=== PATIENT | female | born 1940 | race Caucasian/White ===

== ENCOUNTER → 2023-04-18 10:35 | Outpatient (REF) | payer MEDICARE, SELFPAY | LOC: PAVMRI 10:35 | PROVIDERS: ATTENDING PHYSICIAN Nurse Practitioner Family; FAMILY PHYSICIAN Family Medicine | DX: M25.511 Pain in right shoulder (principal) | CPT/HCPCS: 73221 ==

== ENCOUNTER → 2023-07-06 08:07 | Outpatient (REF) | payer MEDICARE, SELFPAY | LOC: RAD 08:07 | PROVIDERS: ATTENDING PHYSICIAN Nurse Practitioner Family | DX: Z13.820 Encounter for screening for osteoporosis (principal); M85.89 Other specified disorders of bone density and structure, multiple sites; Z78.0 Asymptomatic menopausal state | CPT/HCPCS: 77080 ==

== ENCOUNTER → 2023-10-12 14:36 | Outpatient (REF) | payer MEDICARE, SELFPAY | LOC: RAD 14:36 | PROVIDERS: ATTENDING PHYSICIAN Family Medicine | DX: M25.512 Pain in left shoulder (principal) | CPT/HCPCS: 73030 ==

== ENCOUNTER → 2024-09-06 13:17 | Outpatient (REF) | payer MEDICARE, SELFPAY | LOC: RAD 13:17 | PROVIDERS: ATTENDING PHYSICIAN Nurse Practitioner Primary Care; FAMILY PHYSICIAN Family Medicine | DX: M25.561 Pain in right knee (principal); M25.562 Pain in left knee | CPT/HCPCS: 73564 ==

== ENCOUNTER 2024-09-09 18:03 | Emergency (ER) | payer MEDICARE, SELFPAY ==
[2024-09-09 18:05] VITALS: BP 148/87
[2024-09-09 18:37] LABS: Hematocrit 39.3 % (37.0-47.0); Hemoglobin 13.4 g/dL (12.0-16.0); Mean Corp Hgb Conc. 34.1 g/dL (33.0-37.0); Mean Corpuscular Volume 92.0 fL (81.0-99.0); Nucleated Red Blood Cells % 0 %; Platelet Count 337 10^3/uL (130-400); Red Cell Dist. Width 13.3 % (11.5-14.5)
[2024-09-09 18:47] LABS: ALT (SGPT) 19 U/L (0-35); AST (SGOT) 22 U/L (14-36); Albumin 4.3 g/dl (3.5-5.0); Alkaline Phosphatase 104 U/L (38-126); Blood Urea Nitrogen 23 mg/dl (7-17); Calcium 9.9 mg/dl (8.4-10.2); Carbon Dioxide 21 mmol/L (22-30); Chloride 109 mmol/L (98-107); Glucose 100 mg/dl (70-99); Potassium 4.2 mmol/L (3.5-5.1); Sodium 138 mmol/L (135-145); Total Protein 6.9 g/dl (6.3-8.2); eGFR > 60.00
[2024-09-09 18:58] LABS: Troponin I < 0.012 ng/ml
[2024-09-09 21:37] VITALS: BP 122/88
[2024-09-09 21:38] VITALS: BMI 21.2
[2024-09-09 22:00] VITALS: BP 119/63
[2024-09-09 23:00] VITALS: BP 134/72
[2024-09-09] MEDS: TYLENOL 650 MG PO (23:18)
[2024-09-09 23:44] LABS: Troponin I < 0.012 ng/ml
--- NOTE | 2024-09-09 23:52 | ED.GENMED ---
History of Present Illness
General
Chief Complaint: Chest Pain
Source: patient and previous radiology exam (Essentially unremarkable echocardiogram January 2023)
Exam Limitations: none
Time Seen by Provider: 09/09/24 22:43
Nursing documentation reviewed up to this point in time: agreed with
History of Present Illness
History of Present Illness:
The patient is an 83-year-old female with with history of osteoarthritis, GERD, who presents with left upper chest discomfort that began today. She describes the discomfort as starting below the collarbone on the left and extending down towards her
heart. The patient noted that the area is sore, likely due to her pressing on it. Worse when she is pressing on it. She denies experiencing this type of pain previously. The onset of the pain was around 4:30 PM while lying on the floor with a
heating pad on her leg. She attempted applying pressure to alleviate it unsuccessfully. The patient does not report associated symptoms such as nausea, shortness of breath, or radiating pain down the arm. She does, however, mention a history of neck
muscle tightness on the left side which is different in nature and location from the current chest discomfort. She denies exacerbation of pain with deep breathing. The patient has not experienced a fall or undertaken any unusual physical activity
that could be associated with the pain.
Her daily medications include omeprazole, calcium and vitamin D. She uses topical diclofenac to her knees and right shoulder.
Past History
Past History
ED Past Medical History: GERD and Other (Osteoarthritis, osteopenia)
ED Past Surgical History: Orthopedic (Right ankle 1991, bunionectomy , hip replacement 2021)
Social History
Tobacco: Non-smoker
Alcohol: None
Personal:
Living: alone
Employment: Retired
Family History
Family History: CAD (Mother with history of CAD late in life)
Phy Exam
Physical Exam
Physical Exam:
General: 83-year-old woman appears somewhat younger than stated age, she is bright and alert, pleasant, appears in no acute distress. Daughter is accompanying.
Skin: Warm, dry. Normal color.
Head: Normocephalic, atraumatic.
Neck: Supple, trachea midline. No midline bony tenderness. Minimal tenderness left lateral paracervical musculature. No soft tissue swelling. Full range of motion without difficulty nor pain. No adenopathy.
Eyes, Ears, Nose, Mouth, and Throat: Oral mucosa moist.
Cardiovascular: Regular rate and rhythm. No murmur. Normal peripheral perfusion, No edema. There is mild tenderness left infra clavicular region. Palpation seems to exactly reproduce patient's pain complaint. No soft tissue swelling. No
ecchymosis.
Respiratory: Lungs are clear to auscultation. Respirations are easy and nonlabored.
Gastrointestinal: Abdomen nondistended. Soft, nontender. No palpable masses.
Back: Normal range of motion, normal alignment. Nontender.
Musculoskeletal: Normal range of motion, normal strength.
Neurological: Alert and oriented to person, place, time, and situation, No focal neurological deficit observed.
Psychiatric: Cooperative, appropriate mood & affect.
Scores
Heart Score for Chest Pain Patients
STEMI patient?: No
History: Slightly or Non-Suspicious
ECG: Normal
Age: >/= 65 years
Risk Factors: No Risk Factors
Troponin: </= Normal Limit
Heart Score for Chest Pain Patients: 2
Heart Score Risk: 2.5% MACE over next 6 weeks
Course
Orders/Labs/Results
Orders:
Orders
09/09/24 18:04
Electrocardiogram (*1) Urgent
Reason for Study: Chest Pain
EKG- Treatment ONCE
09/09/24 18:21
Complete Blood Count/With Diff Urgent
Comprehensive Metabolic Panel Urgent
Troponin I Urgent
09/09/24 23:00
Electrocardiogram (*1) Urgent
Reason for Study: Chest Pain
EKG- Treatment ONCE
Acetaminophen [Tylenol] 650 mg PO NOW STA
08/04/25 23:02
CR Chest - 2 Views Urgent
Comment:
Reason For Exam: left upper chest pain
09/09/24 23:08
Troponin I Urgent
Abnormal Lab Results
09/09/24
18:21
MCH 31.4 H pg
(27.0-31.0)
Absolute Monos (auto) 0.9 H 10^3/uL
(0.1-0.6)
Monocytes % 11.7 H %
(1.7-9.3)
Chloride 109 H mmol/L
(98-107)
Carbon Dioxide 21 L mmol/L
(22-30)
BUN 23 H mg/dl
(7-17)
Glucose 100 H mg/dl
(70-99)
09/09/24 18:21
09/09/24 18:21
Vital Signs
Initial and Last Documented VS:
Initial Vital Signs
Temp Pulse Resp BP Pulse Ox
98.1 F 86 18 148/87 95
09/09/24 18:05 09/09/24 18:05 09/09/24 18:05 09/09/24 18:05 09/09/24 18:05
Last Documented Vital Signs
Temp Pulse Resp BP Pulse Ox
98.1 F 88 15 134/72 95
09/09/24 18:05 09/09/24 23:30 09/09/24 23:30 09/09/24 23:00 09/09/24 23:54
MDM/Problems Addressed
Differential Diagnosis Includes:
The Differential Diagnosis includes, in no particular order and is not limited to:
1. Musculoskeletal chest pain
2. Costochondritis
3. Acute coronary syndrome
4. Gastroesophageal reflux disease (GERD)
5. Pulmonary embolism
6. Pneumonia
7. Pneumothorax
8. Angina
9. Pericarditis
10. Herpes zoster (in pre-eruptive phase)
MDM/Problems Addressed:
Acute Problems:
- Chest discomfort, likely musculoskeletal.
Chronic conditions affecting care:
GERD, osteoarthritis, advanced age
Thus far labs are unremarkable including negative troponin.
EKG shows normal sinus rhythm, first-degree AV block otherwise unremarkable. No old EKGs to compare.
Will plan to repeat troponin and EKG and will check chest x-ray.
Will trial a dose of Tylenol for pain.
No significant risk factors for thromboembolism. History and exam not consistent with dissection and reassuring that chest pain is localized, reproducible with palpation infraclavicular on the left.
*Radiology
Radiology exam reviewed: preliminary read by ED provider (Chest x-ray is unremarkable. )
*Pulse Oximetry
SaO2: 95
Oxygen Mode of Delivery: Room air
Patient hypoxic: no
*EKG
Interpreted by ED Provider?: Yes
Interpretation: normal
Comparison EKG: no comparison EKG present
Rate: normal
Rhythm: sinus
Darwin: normal axis
Interval: first degree heart block
QRS Pattern: normal QRS
Ischemia: no ischemia
*[employer] Interpretation
Rate: normal
Interpretation: normal
Rhythm: sinus
*Critical Care Note
Total Time (30-74mins, 75-104mins- exclusive of procedures): Not Applicable
Update Note
Update Note:
23:52
Patient feeling improved after Tylenol.
Chest x-ray is unremarkable.
Repeat troponin remains flat, negative.
I suspect musculoskeletal pain. GERD is also a possibility but less likely especially as pain appears to be reproducible with palpation.
Recommend continuing Tylenol. She may trial topical Voltaren gel, trial topical lidocaine patch.
Prompt follow-up with PCP for recheck.
Due to family history of CAD�mom, late in life will refer to cardiology for completeness sake.
Return precautions discussed.
ED Attending Note
-
Portions of this chart may have been created with voice recognition software.� Occasional wrong word or��sound alike� substitutions may have occurred due to the inherent limitations of voice recognition software.
Discharge Plan
Departure
Patient Disposition: Home (Routine Discharge)
Date of Disposition: 09/09/24
Time of Disposition: 23:52
Patient with high blood pressure during this ER visit?: No
Condition: Good
Discharge Problem:
Acute left upper chest pain
Instructions: Chest Pain CBC Follow Up, Chest Pain PCP Follow Up
Referrals:
Maria Alejandra Wilks, DO [Family Provider, Family Practice]
Interventions
Interventions:
*Risk Screen - Suicide Last Done: 09/09/24 18:05
*General Assessment Last Done: 09/09/24 18:05
*Neglect/Abuse Screening Last Done: 09/09/24 18:05
*ED- Fall Risk Assessment Last Done: 09/09/24 21:38
*ED COVID-19 Vaccine History Last Done: 09/09/24 21:38
*Nursing Disposition Last Done: 09/10/24 00:04
ED- Cardiac Assessment Last Done: 09/09/24 21:43
Discharge Date and Time
Discharge Date/Time: 09/10/24 00:05
Print Language: ITALIAN
== END 2024-09-10 00:05 | disposition home or self-care (01) ==
LOC: EMR 18:03
PROVIDERS: Student in an Organized Health Care Education/Training Program; EMERGENCY PHYSICIAN Emergency Medicine; FAMILY PHYSICIAN Family Medicine
DX: R07.89 Other chest pain (principal); K21.9 Gastro-esophageal reflux disease without esophagitis; M85.80 Other specified disorders of bone density and structure, unspecified site; Z79.899 Other long term (current) drug therapy
CPT/HCPCS: 99285; 71046; 80053; 84484; 85025; 93005

== ENCOUNTER → 2024-11-25 12:46 | Outpatient (REF) | payer MEDICARE, SELFPAY | LOC: REG 12:46 | PROVIDERS: ATTENDING PHYSICIAN Nurse Practitioner Primary Care | DX: M47.812 Spondylosis without myelopathy or radiculopathy, cervical region (principal); M54.12 Radiculopathy, cervical region | CPT/HCPCS: 72052 ==

== ENCOUNTER → 2024-11-29 14:33 | Outpatient (REF) | payer MEDICARE, SELFPAY | LOC: WDC 14:33 | PROVIDERS: ATTENDING PHYSICIAN Nurse Practitioner Primary Care | DX: Z12.31 Encounter for screening mammogram for malignant neoplasm of breast (principal) | CPT/HCPCS: 77063; 77067 ==